=== PATIENT | male | born 1975 | race Caucasian/White ===

== ENCOUNTER → 2024-03-02 09:14 | Outpatient (REF) | payer OTHER, SELFPAY | LOC: PAVMRI 09:14 | PROVIDERS: ATTENDING PHYSICIAN Orthopaedic Surgery Orthopaedic Surgery of the Spine; FAMILY PHYSICIAN Student in an Organized Health Care Education/Training Program | DX: M48.062 Spinal stenosis, lumbar region with neurogenic claudication (principal) | CPT/HCPCS: 72158; A9575 ==